=== PATIENT | female | born 1975 | race Caucasian/White ===

== ENCOUNTER 2018-05-27 00:21 | Emergency (ER) | payer MEDICARE, MEDICAID ==
[2018-05-27] MEDS ORDERED: Lidocaine Viscous Sol 2% 15 ml UD Cup ONE (00:42)
[2018-05-27] MEDS ORDERED: Mag-Al 1200 mg/1200 mg/30 ML UDCUP ONE (00:42)
[2018-05-27] MEDS ORDERED: Ondansetron PF 4 MG/2 ML Vial ONE (00:42)
[2018-05-27 01:04] LABS: Hemoglobin 14.8 g/dL (12.0-16.0); Mean Corpuscular HGB CONC 32.7 g/dL (32.0-36.0); Mean Corpuscular Hemoglobin 30.1 pg (27.0-31.0); RBC Distribution Width 11.4 % (11.5-14.5); Red Blood Cell (RBC) Count 4.93 mill/uL (4.20-5.40); White Blood Cell (WBC) Count 7.7 thou/uL (4.8-10.8)
[2018-05-27 01:17] LABS: ALT (SGPT) 25 U/L (8-55); AST (SGOT) 21 U/L (5-34); Alkaline Phosphatase 107 U/L (40-150); Anion Gap 13 mmol/L (10-20); BUN (Urea Nitrogen) 10 mg/dL (7.0-18.7); Bilirubin, Total Less than 0.2 mg/dL (0.2-1.2); Calc. Creatinine Clearance 0 mL/min (70-130); Calcium 8.9 mg/dL (7.8-10.44); Carbon Dioxide 21 mmol/L (22-29); Chloride 108 mmol/L (98-107); Estimated GFR-MDRD 90; Globulin 2.8 g/dL (2.4-3.5); Glucose 91 mg/dL (70-105); Lipase 20 U/L (8-78); Potassium 3.2 mmol/L (3.5-5.1); Protein, Total 6.8 g/dL (6.0-8.3); Sodium 139 mmol/L (136-145)
[2018-05-27 01:25] LABS: #Eosinphils 0.3 thou/uL (0.0-0.7); #Lymphocytes 2.8 thou/uL (1.20-3.40); #Monocytes 0.9 thou/uL (0.11-0.59); #Neutrophils 3.7 thou/uL (1.40-6.50); %Basophils 0.5 % (0.0-1.0); %Eosinophils 3.3 % (0.0-10.0); %Lymphocytes 36.5 % (21.0-51.0); %Monocytes 11.1 % (0.0-10.0); %Neutrophils 48.5 % (42.0-75.0); MDiff Complete? YES; Mean Platelet Volume 11.6 fL (7.4-10.4); Platelet Clumps SLIGHT; Platelet Count 132 thou/uL (130-400); Platelet Morphology Comment Appears Adequate; RBC Morphology Normal
[2018-05-27] MEDS ORDERED: Potassium Chloride 20 MEQ TAB ONE (01:55)
--- NOTE | 2018-05-27 08:24 | RAD ---
TWO VIEW CHEST: HISTORY: Chest pain. COMPARISON: 10/14/2016. FINDINGS: The lungs are clear. No infiltrates seen. Heart and mediastinum unremarkable. Vascular markings no rmal. Osseous structures unremarkable. IMPRESSION: No acute finding. POS: OFF
== END 2018-05-27 04:34 | disposition home or self-care (01) ==
LOC: ERS 00:21
DX: R07.89 Other chest pain (principal); E87.6 Hypokalemia; J45.909 Unspecified asthma, uncomplicated; F41.9 Anxiety disorder, unspecified; F31.9 Bipolar disorder, unspecified; F17.210 Nicotine dependence, cigarettes, uncomplicated
CPT/HCPCS: 36415; 71046; 80053; 83690; 84484; 85025; 93005; 96374; J2405

== ENCOUNTER 2020-01-31 16:20 | Emergency (ER) | payer MEDICARE, MEDICAID ==
--- NOTE | 2020-01-31 17:04 | RAD ---
RIGHT SHOULDER 3 VIEWS: Date: 01/31/2020 HISTORY: Pain. FINDINGS: AC joint arthrosis changes with hypertrophic osteophytosis. No evidence for acute fracture or disloca tion. IMPRESSION: Prominent AC joint osteoarthrosis without fracture or dislocation. POS: OFF
[2020-01-31] MEDS ORDERED: Ketorolac Tromethamine 30 MG/ML VIAL ONE (17:13)
== END 2020-01-31 17:37 | disposition home or self-care (01) ==
LOC: EEVIPCON 16:20 → ERS 16:20
DX: M19.011 Primary osteoarthritis, right shoulder (principal); J45.909 Unspecified asthma, uncomplicated; F41.9 Anxiety disorder, unspecified; F31.9 Bipolar disorder, unspecified; F17.210 Nicotine dependence, cigarettes, uncomplicated
CPT/HCPCS: 96372; J1885

== ENCOUNTER 2020-08-21 21:37 | Emergency (ER) | payer MEDICARE, MEDICAID ==
[2020-08-21 22:11] LABS: Bilirubin Negative (Negative); Blood, Urine 3+ (Negative); Clarity Clear (Clear); Glucose, Urine (Dipstick) Normal (Negative); Ketone, Urine Negative (Negative); Leukocyte Negative Leu/uL (Negative); Nitrite Negative (Negative); Protein, Urine (Dipstick) 20 mg/dL (Neg-Trace); RBC/HPF Greater than 50 HPF (0-3); Specific Gravity, Urine 1.006 (1.002-1.036); Squamous Epithelial 0-3 HPF (0-3); Urobilinogen Normal mg/dL (Less than 2); WBC/HPF 0-3 HPF (0-3); pH, Urine 6.5 (5.0-9.0)
[2020-08-21 22:13] LABS: Bacteria/HPF 2+ HPF (None Seen)
[2020-08-21 22:14] LABS: Pregnancy Test - Urine (BHCG) Negative (Negative); Pregu Control Background? CLEAR/WHITE (CLR/WHITE); Pregu Control Bar Appear? YES (CONTROL BAR); Specific Gravity 1.006 (1.002-1.036)
[2020-08-21] MEDS ORDERED: Albuterol 200 PUFF (6.7GM INHALER) ONE (23:38)
[2020-08-22] MEDS ORDERED: predniSONE 20 MG TAB ONE (00:11)
== END 2020-08-22 00:18 | disposition home or self-care (01) ==
LOC: ERS 21:37
DX: N30.01 Acute cystitis with hematuria (principal); J45.909 Unspecified asthma, uncomplicated; F17.210 Nicotine dependence, cigarettes, uncomplicated
CPT/HCPCS: 81003; 81015; 81025; 87086; J7512

== ENCOUNTER 2020-12-11 | Emergency (ER) | payer MEDICARE, MEDICAID | END 2020-12-11 12:12 | disposition home or self-care (01) ==

== ENCOUNTER 2021-12-01 14:12 | Emergency (ER) | payer MEDICARE, MEDICAID ==
[2021-12-01] MEDS ORDERED: Fluorescein Opthalmic Strip ONE (14:26)
[2021-12-01] MEDS ORDERED: Proparacaine 0.5% Opth 15 ML BOT ONE (14:27)
== END 2021-12-01 14:52 | disposition home or self-care (01) ==
LOC: ERS 14:12
DX: H10.9 Unspecified conjunctivitis (principal); F17.210 Nicotine dependence, cigarettes, uncomplicated; J45.909 Unspecified asthma, uncomplicated; Z79.899 Other long term (current) drug therapy
CPT/HCPCS: 99283

== ENCOUNTER 2022-03-17 18:19 | Emergency (ER) | payer MEDICARE, MEDICAID | END 2022-03-17 21:10 | disposition home or self-care (01) | LOC: ERS 18:19 | DX: R13.10 Dysphagia, unspecified (principal); J35.1 Hypertrophy of tonsils; F17.210 Nicotine dependence, cigarettes, uncomplicated; J45.909 Unspecified asthma, uncomplicated | CPT/HCPCS: 70360; 70490; 71045 ==

== ENCOUNTER 2022-10-06 11:54 | Emergency (ER) | payer MEDICARE, MEDICAID ==
[~2022-10-06 11:54] MED LIST: Iopamidol-370 76% 500 ML MDV (1 ML CHARGE) ONE
[2022-10-06 13:18] LABS: #Basophils 0.1 thou/uL (0.0-0.2); #Eosinphils 0.2 thou/uL (0.0-0.7); #Monocytes 0.6 thou/uL (0.11-0.59); #Neutrophils 6.6 thou/uL (1.40-6.50); %Basophils 0.6 % (0.0-1.0); %Eosinophils 1.6 % (0.0-10.0); %Monocytes 5.5 % (0.0-10.0); Hemoglobin 14.2 g/dL (12.0-16.0); Mean Corpuscular HGB CONC 32.4 g/dL (32.0-36.0); Mean Corpuscular Hemoglobin 30.3 pg (27.0-31.0); Mean Corpuscular Volume 93.6 fl (78.0-98.0); Mean Platelet Volume 11.4 fL (7.4-10.4); Platelet Count 230 10x3/uL (130-400); RBC Distribution Width 13.2 % (11.5-14.5); Red Blood Cell (RBC) Count 4.68 mill/uL (4.20-5.40); White Blood Cell (WBC) Count 10.8 10x3/uL (4.8-10.8)
[2022-10-06 13:50] LABS: ALT (SGPT) 25 U/L (8-55); AST (SGOT) 16 U/L (5-34); Albumin 3.9 g/dL (3.5-5.0); Alkaline Phosphatase 111 U/L (40-110); Anion Gap 11 mmol/L (10-20); BUN (Urea Nitrogen) 7 mg/dL (7.0-18.7); Bilirubin, Total 0.3 mg/dL (0.2-1.2); CK (CPK) 78 U/L (29-168); Calc. Creatinine Clearance 0 mL/min (70-130); Calcium 9.2 mg/dL (7.8-10.44); Carbon Dioxide 23 mmol/L (22-29); Chloride 110 mmol/L (98-107); Estimated GFR 84; Globulin 2.2 g/dL (2.4-3.5); Glucose 144 mg/dL (70-105); Lipase 17 U/L (8-78); Potassium 4.4 mmol/L (3.5-5.1); Protein, Total 6.1 g/dL (6.0-8.3); Sodium 140 mmol/L (136-145)
[2022-10-06 16:33] LABS: Bacteria/HPF None Seen HPF (None Seen); Bilirubin Negative (Negative); Blood, Urine Negative (Negative); CAUTI Indications for Culture Pelvic or flank pain; Clarity Clear (Clear); Glucose, Urine (Dipstick) Normal (Negative); Ketone, Urine Negative (Negative); Leukocyte Negative Leu/uL (Negative); Nitrite Negative (Negative); Protein, Urine (Dipstick) Negative (Neg-Trace); RBC/HPF 0-3 HPF (0-3); Specific Gravity, Urine 1.007 (1.002-1.036); Squamous Epithelial 0-3 HPF (0-3); Urobilinogen Normal mg/dL (Less than 2); WBC/HPF 0-3 HPF (0-3); pH, Urine 5.5 (5.0-9.0)
[2022-10-06 16:38] LABS: Urine Culture Reflex No No
[2022-10-06] MEDS ORDERED: Ketorolac Tromethamine 30 MG/ML VIAL ONE (16:54)
== END 2022-10-06 17:44 | disposition home or self-care (01) ==
LOC: ERS 11:54
DX: R07.9 Chest pain, unspecified (principal); F17.210 Nicotine dependence, cigarettes, uncomplicated
CPT/HCPCS: 36415; 71045; 71275; 80053; 81001; 82550; 83690; 83735; 84484; 85025; 85379; 93005; 96374; J1885; Q9967

== ENCOUNTER 2022-10-08 15:52 | Outpatient (CLI) | payer MEDICARE, MEDICAID | END 2022-10-08 15:53 | disposition home or self-care (01) | LOC: BICRAD 15:52 | PROVIDERS: ATTEND Student in an Organized Health Care Education/Training Program | DX: M62.838 Other muscle spasm (principal); M54.9 Dorsalgia, unspecified; M47.812 Spondylosis without myelopathy or radiculopathy, cervical region; M48.02 Spinal stenosis, cervical region; M25.78 Osteophyte, vertebrae | CPT/HCPCS: 72040; 72072; 72100 ==

== ENCOUNTER 2022-10-28 12:10 | Emergency (ER) | payer MEDICARE, MEDICAID ==
[2022-10-28] MEDS ORDERED: Acetaminophen 500 MG TAB ONE (15:06)
== END 2022-10-28 15:09 | disposition home or self-care (01) ==
LOC: ERS 12:10
DX: S06.0X0A Concussion without loss of consciousness, initial encounter (principal); F17.210 Nicotine dependence, cigarettes, uncomplicated; Y04.8XXA Assault by other bodily force, initial encounter
CPT/HCPCS: 70450

== ENCOUNTER 2023-04-02 11:47 | Outpatient (CLI) | payer MEDICARE | END 2023-04-02 11:48 | disposition home or self-care (01) | LOC: SCSMRI 11:47 | PROVIDERS: ATTEND Student in an Organized Health Care Education/Training Program | DX: M47.812 Spondylosis without myelopathy or radiculopathy, cervical region (principal); M54.50 Low back pain, unspecified; G89.29 Other chronic pain; M48.02 Spinal stenosis, cervical region; M51.34 Other intervertebral disc degeneration, thoracic region; M25.78 Osteophyte, vertebrae; G95.89 Other specified diseases of spinal cord | CPT/HCPCS: 72141; 72146; 72148 ==

== ENCOUNTER 2023-10-12 15:08 | Outpatient (CLI) | payer MEDICARE | END 2023-10-12 15:09 | disposition home or self-care (01) | LOC: BICMAMMO 15:08 | PROVIDERS: ATTEND Student in an Organized Health Care Education/Training Program | DX: Z12.31 Encounter for screening mammogram for malignant neoplasm of breast (principal) | CPT/HCPCS: 77063; 77067 ==

== ENCOUNTER 2024-03-28 20:47 | Emergency (ER) | payer MEDICARE ==
[2024-03-28] MEDS ORDERED: Acetaminophen 500 MG TAB ONE (23:11)
[2024-03-29 00:12] LABS: #Basophils 0.07 10x3/uL (0.0-0.2); %Basophils 0.7 % (0.0-1.0); %Eosinophils 3.8 % (0.0-10.0); %Lymphocytes 40.4 % (21.0-51.0); %Monocytes 9.7 % (0.0-10.0); %Neutrophils 45.1 % (42.0-75.0); Hematocrit 40.8 % (36.0-47.0); Hemoglobin 13.2 g/dL (12.0-16.0); Mean Corpuscular HGB CONC 32.4 g/dL (32.0-36.0); Mean Corpuscular Hemoglobin 30.1 pg (27.0-31.0); Mean Corpuscular Volume 92.9 fL (78.0-98.0); Mean Platelet Volume 11.2 fL (7.4-10.4); Platelet Count 247 10x3/uL (130-400); RBC Distribution Width 12.7 % (11.5-14.5); Red Blood Cell (RBC) Count 4.39 mill/uL (4.20-5.40)
[2024-03-29 00:32] LABS: Troponin I Less than 0.010 ng/mL (< 0.028)
[2024-03-29 00:41] LABS: ALT (SGPT) 20 U/L (8-55); AST (SGOT) 16 U/L (5-34); Albumin 3.2 g/dL (3.5-5.0); Alkaline Phosphatase 121 U/L (40-110); Anion Gap 11 mmol/L (10-20); BUN (Urea Nitrogen) 10 mg/dL (7.0-18.7); Bilirubin, Total 0.2 mg/dL (0.2-1.2); Calc. Creatinine Clearance 0 mL/min (70-130); Calcium 8.4 mg/dL (7.8-10.44); Carbon Dioxide 22 mmol/L (22-29); Chloride 110 mmol/L (98-107); Estimated GFR 91; Globulin 2.9 g/dL (2.4-3.5); Glucose 125 mg/dL (70-105); Potassium 3.7 mmol/L (3.5-5.1); Protein, Total 6.1 g/dL (6.0-8.3); Sodium 139 mmol/L (136-145)
[2024-03-29] MEDS ORDERED: Morphine 4 MG/ML VIAL ONE (01:56)
[2024-03-29] MEDS ORDERED: Ketorolac Tromethamine 30 MG (1 mL) VIAL ONE (02:55)
== END 2024-03-29 04:34 | disposition home or self-care (01) ==
LOC: ERS 20:47
DX: S20.211A Contusion of right front wall of thorax, initial encounter (principal); F17.200 Nicotine dependence, unspecified, uncomplicated; W01.0XXA Fall on same level from slipping, tripping and stumbling without subsequent striking against object, initial encounter
CPT/HCPCS: 71250; 71275; 80053; 84484; 85025; 85379; 93005; J1885; J2272; 36415; 96374; 96375

== ENCOUNTER 2024-06-02 14:27 | Emergency (ER) | payer MEDICARE ==
[2024-06-02] MEDS ORDERED: Ibuprofen 200 MG TAB ONE (17:26)
[2024-06-02] MEDS ORDERED: Acetaminophen 325 MG TAB ONE (17:26)
== END 2024-06-02 18:07 | disposition home or self-care (01) ==
LOC: ERS 14:27
DX: T16.1XXA Foreign body in right ear, initial encounter (principal); F17.210 Nicotine dependence, cigarettes, uncomplicated
CPT/HCPCS: 69200

== ENCOUNTER 2024-12-19 22:03 | Emergency (ER) | payer MEDICARE ==
[2024-12-19 23:43] LABS: #Basophils 0.03 10x3/uL (0.0-0.2); #Eosinophils 0.05 10x3/uL (0.0-0.7); #Monocytes 0.61 10x3/uL (0.11-0.59); #Neutrophils 5.40 10x3/uL (1.40-6.50); %Basophils 0.4 % (0.0-1.0); %Eosinophils 0.7 % (0.0-10.0); %Lymphocytes 9.7 % (21.0-51.0); %Monocytes 9.0 % (0.0-10.0); %Neutrophils 79.8 % (42.0-75.0); Hematocrit 44.6 % (36.0-47.0); Hemoglobin 14.2 g/dL (12.0-16.0); Mean Corpuscular Hemoglobin 28.9 pg (27.0-31.0); Mean Corpuscular Volume 90.7 fL (78.0-98.0); Platelet Count 187 10x3/uL (130-400); Red Blood Cell (RBC) Count 4.92 mill/uL (4.20-5.40); White Blood Cell (WBC) Count 6.78 10x3/uL (4.8-10.8)
[2024-12-19 23:59] LABS: ALT (SGPT) 23 U/L (Less than 34); AST (SGOT) 21 U/L (11-34); Albumin 3.6 g/dL (3.1-4.5); Alkaline Phosphatase 132 U/L (40-110); Anion Gap 15 mmol/L (10-20); BUN (Urea Nitrogen) 6 mg/dL (7.0-18.7); Bilirubin, Total 0.2 mg/dL (0.3-1.2); Calc. Creatinine Clearance 0 mL/min (70-130); Calcium 8.8 mg/dL (7.8-10.44); Carbon Dioxide 21 mmol/L (22-29); Chloride 106 mmol/L (98-107); Globulin 3.1 g/dL (2.4-3.5); Glucose 94 mg/dL (70-105); Potassium 3.9 mmol/L (3.5-5.1); Sodium 138 mmol/L (136-145)
[2024-12-20] MEDS ORDERED: diphenhydrAMINE 50 MG/ML VIAL ONE (02:07)
[2024-12-20] MEDS ORDERED: Ketorolac Tromethamine 30 MG (1 mL) VIAL ONE (02:07)
[2024-12-20] MEDS ORDERED: Acetaminophen 500 MG TAB ONE (02:07)
[2024-12-20] MEDS ORDERED: Metoclopramide HCl 10 MG (2 mL) VIAL ONE (02:08)
[2024-12-20] MEDS ORDERED: Benzonatate 100 MG CAP ONE ×2 (02:14→02:15)
[2024-12-20] MEDS ORDERED: Dexamethasone 10 MG/ML VIAL ONE (02:33)
== END 2024-12-20 04:45 | disposition home or self-care (01) ==
LOC: ERS 22:03
DX: U07.1 COVID-19 (principal); F17.210 Nicotine dependence, cigarettes, uncomplicated
CPT/HCPCS: 70450; 71045; 80053; 84484; 85025; 87428; 93005; J1100; J1200; J1885; J2765; 36415; 96374; 96375; J2919; J7620